=== PATIENT | female | born 1980 | race American Indian/Alaskan Native ===

== ENCOUNTER 2021-06-26 09:47 | Emergency (ER) | payer OTHER ==
[2021-06-26 09:55] VITALS: BP 134/88
[2021-06-26 12:04] LABS: Basophils # (Auto) 0.1 K/mm3 (0.0-0.1); Basophils % (Auto) 0.4 % (0.0-1.8); Eosinophils # (Auto) 0.3 K/mm3 (0.0-0.4); Eosinophils % (Auto) 2.2 % (0.0-4.3); Hematocrit 38.1 % (30.3-42.9); Lymphocytes # (Auto) 1.6 K/mm3 (1.2-5.4); Mean Corpuscular HGB Conc 34 % (30-34); Mean Corpuscular Volume 91 fl (79-97); Monocytes # (Auto) 0.7 K/mm3 (0.0-0.8); Platelet Count 255 K/mm3 (140-440); Red Blood Count 4.21 M/mm3 (3.65-5.03); Red Cell Distribution Width 13.7 % (13.2-15.2)
[2021-06-26] MEDS ORDERED: ACETAMINOPHEN 500 MG TAB PO ONE (12:07)
[2021-06-26 12:24] LABS: BUN/Creatinine Ratio 14; Blood Urea Nitrogen 10 mg/dL (7-17); Calcium 8.9 mg/dL (8.4-10.2); Hemolysis Index 8
--- NOTE | 2021-06-26 13:57 | Cat Scan Report ---
CT ABDOMEN AND PELVIS WITHOUT CONTRAST INDICATION / CLINICAL INFORMATION: abdominal pain. TECHNIQUE: Axial CT images were obtained through the abdomen and pelvis without IV contrast. Sagittal and pace l reformatted images. All CT scans at this location are performed using CT dose reduction for ALARA b y means of automated exposure control. COMPARISON: None available. FINDINGS: LOWER CHEST: No significant abnormality. LIVER: No significant abnormality. GALLBLADDER: No significant abnormality. BILE DUCTS: No significant abnormality. PANCREAS: No significant abnormality. SPLEEN: No significant abnormality. ADRENALS: No significant abnormality. RIGHT KIDNEY and URETER: No significant abnormality. LEFT KIDNEY and URETER: No significant abnormality. STOMACH and SMALL BOWEL: No significant abnormality. COLON: No significant abnormality. APPENDIX: No significant abnormality. PERITONEUM: Small pelvic ascites. No free air. No fluid collection. LYMPH NODES: No significant adenopathy. AORTA and ARTERIES: No significant abnormality. IVC and VEINS: No significant abnormality. URINARY BLADDER: No significant abnormality. REPRODUCTIVE ORGANS: A 4.0 cm left ovarian cyst is identified. There is small pelvic ascites. The tolowa dee-ni' jesús and adnexa are unremarkable. ADDITIONAL FINDINGS: None. SKELETAL SYSTEM: No significant abnormality. IMPRESSION: 4.0 cm left ovarian cyst. Small pelvic ascites. Signer Name: Artemio Jurado Jr, MD Signed: 06/26/2021 1:53 PM Workstation Name: [id number]
--- NOTE | 2021-06-26 14:18 | Emergency Department Report ---
ED Abdominal Pain HPI - General Chief Complaint: Abdominal Pain Stated Complaint: ABDOMINAL PAIN Time Seen by Provider: 06/26/21 10:58 Source: patient Mode of arrival: Ambulatory Limitations: No Limitations - History of Present Illness Initial Comments: 41-year-old female presents to ED with complaint of lower abdominal pain x1 day. Patient reports some associated vaginal spotting/hematuria that she notices when she wipes. She denies any fever, nausea or vomiting. She denies any frequency or dysuria. MD Complaint: abdominal pain -: days(s) (1) Location: suprapubic Radiation: none Migration to: no migration Severity: moderate Severity scale (0 -10): 0 Quality: cramping Consistency: constant Improves With: nothing Worsens With: nothing Associated Symptoms: denies: nausea, vomiting, diarrhea, fever, dysuria - Related Data Previous Rx's Medication Instructions Recorded Last Taken Type traMADoL [Ultram 50 MG tab] 50 mg PO Q4HR PRN #14 tablet 05/15/13 Unknown Rx Azithromycin [Zithromax] 500 mg PO QDAY #5 tablet 08/24/13 Unknown Rx Hycodan 5 ml PO Q6HR #120 ml 08/24/13 Unknown Rx Naproxen [Naprosyn] 500 mg PO BID #20 tablet 06/26/21 Unknown Rx Nitrofurantoin [place]/M-Cryst 100 mg PO Q12HR 7 Days #14 capsule 06/26/21 Unknown Rx [Macrobid CAP] Phenazopyridine [Pyridium] 200 mg PO TID #6 tab 06/26/21 Unknown Rx Allergies Allergy/AdvReac Type Severity Reaction Status Date / Time No Known Allergies Allergy Unverified 05/14/13 20:13 ED Review of Systems ROS: Stated complaint: ABDOMINAL PAIN Other details as noted in HPI Comment: All other systems reviewed and negative Constitutional: denies: chills, fever Gastrointestinal: abdominal pain. denies: nausea, vomiting, diarrhea Genitourinary: hematuria, abnormal menses ED Past Medical Hx - Past Medical History Previous Medical History?: Yes Hx Renal Disease: Yes - Surgical History Past Surgical History?: No - Social History Smoking Status: Current Every Day Smoker Substance Use Type: None - Medications Home Medications: Home Medications Medication Instructions Recorded Confirmed Last Taken Type traMADoL [Ultram 50 MG tab] 50 mg PO Q4HR PRN #14 tablet 05/15/13 Unknown Rx Azithromycin [Zithromax] 500 mg PO QDAY #5 tablet 08/24/13 Unknown Rx Hycodan 5 ml PO Q6HR #120 ml 08/24/13 Unknown Rx Naproxen [Naprosyn] 500 mg PO BID #20 tablet 06/26/21 Unknown Rx Nitrofurantoin [place]/M-Cryst 100 mg PO Q12HR 7 Days #14 capsule 06/26/21 Unknown Rx [Macrobid CAP] Phenazopyridine [Pyridium] 200 mg PO TID #6 tab 06/26/21 Unknown Rx ED Physical Exam - General Limitations: No Limitations General appearance: alert, in no apparent distress - Head Head exam: Present: atraumatic, normocephalic - Eye Eye exam: Present: normal appearance, EOMI - ENT ENT exam: Present: mucous membranes moist - Neck Neck exam: Present: normal inspection - Respiratory Respiratory exam: Present: normal lung sounds bilaterally. Absent: respiratory distress - Cardiovascular Cardiovascular Exam: Present: regular rate, normal rhythm - GI/Abdominal GI/Abdominal exam: Present: soft, tenderness (Suprapubic). Absent: distended - Extremities Exam Extremities exam: Present: normal inspection - Neurological Exam Neurological exam: Present: alert, oriented X3 - Psychiatric Psychiatric exam: Present: normal affect, normal mood - Skin Skin exam: Present: warm, dry, intact, normal color ED Course Vital Signs 06/26/21 09:53 Temperature 98.2 F Pulse Rate 88 Respiratory 16 Rate Blood Pressure 134/88 [Left] O2 Sat by Pulse 100 Oximetry ED Medical Decision Making - Lab Data Result diagrams: 06/26/21 11:53 06/26/21 11:53 - Radiology Data Radiology results: report reviewed, image reviewed - Medical Decision Making 41-year-old female presents to ED with suprapubic abdominal pain and spotting/hematuria. CT scan shows 4 cm left ovarian cyst. UA is positive for UTI. test is negative. Patient will be treated with antibiotics. Outpatient follow-up with [facility] as advised to follow-up on her ovarian cyst. Return precautions given. - Differential Diagnosis , UTI, ectopic, miscarriage Critical care attestation.: If time is entered above; I have spent that time in minutes in the direct care of this critically ill patient, excluding procedure time. ED Disposition Clinical Impression: UTI (urinary tract infection), Ovarian cyst Disposition: / SELF CARE / HOMELESS Is pt being admited?: No Condition: Stable Instructions: Urinary Tract Infection, Adult, [id number], Ovarian Cyst, [id number], Abdominal Pain (ED) Prescriptions: Nitrofurantoin [place]/M-Cryst [Macrobid CAP] 100 mg PO Q12HR 7 Days #14 capsule Naproxen [Naprosyn] 500 mg PO BID #20 tablet Phenazopyridine [Pyridium] 200 mg PO TID #6 tab Referrals: [facility] [Provider Group] - 3-5 Days Forms: Work/School Release Form(ED) Time of Disposition: 14:49
[2021-06-26 14:34] LABS: Bacteria,Urine 1+ /HPF (Negative); Bilirubin,Urine NEG (Negative); Blood,Urine LG (Negative); Color,Urine Yellow (Yellow); Mucus,Urine FEW /HPF; Urobilinogen,Urine < 2.0 mg/dL (<2.0)
[2021-06-26 14:38] LABS: WBC,Urine > 182.0 /HPF (0.0-6.0)
== END 2021-06-26 15:12 | disposition home or self-care (01) ==
LOC: ED 09:47
DX: N83.209 Unspecified ovarian cyst, unspecified side (principal); N39.0 Urinary tract infection, site not specified; F17.200 Nicotine dependence, unspecified, uncomplicated
CPT/HCPCS: 36415; 74176; 80048; 81001; 84702; 85025; 99284